=== PATIENT | male | born 1985 | race Caucasian/White ===

== ENCOUNTER 2020-06-21 15:18 | Emergency (ER) | payer OTHER ==
[~2020-06-21] VITALS: Ht 167 cm; Wt 78.0 kg
[~2020-06-21 15:18] MED LIST: NAPR-243 PO
--- NOTE | 2020-06-21 15:28 | ED General ---
General Stated Complaint: LEFT TOES SWOLLEN,RED, HURT WHEN WALKING Source of Information: Patient Exam Limitations: No Limitations History of Present Illness Date Seen by Provider: Jun 21, 2020 Time Seen by Provider: 15:27 Initial Comments Left fourth and fifth toe pain after stubbing it against the wall just prior to arrival. Timing/Duration: 1-2 Days Severity: Moderate Associated Systoms: Denies Symptoms Allergies and Home Medications Allergies Coded Allergies: Codeine (Unverified Allergy, Severe, SEIZURES, 09/29/09) Home Medications Naproxen 500 Mg Tablet, 1 EACH PO BID - TID PRN Prescribed by: MEAGAN AGUIRRE on 09/29/091922 Patient Home Medication List Home Medication List Reviewed: Yes Review of Systems Review of Systems Constitutional: see HPI EENTM: see HPI Respiratory: no symptoms reported Cardiovascular: no symptoms reported Genitourinary: no symptoms reported Musculoskeletal: see HPI Skin: no symptoms reported Psychiatric/Neurological: No Symptoms Reported Hematologic/Lymphatic: No Symptoms Reported Immunological/Allergic: no symptoms reported Physical Exam Vital Signs Vital Signs - First Documented 06/21/20 15:26 Temp 36.2 Pulse 102 Resp 18 B/P (MAP) 140/103 (115) Pulse Ox 98 Capillary Refill : Height, Weight, BMI Height: '" Weight: lbs. oz. kg; BMI Method: General Appearance: No Apparent Distress, WD/WN Neck: Full Range of Motion, Normal Inspection Respiratory: No Accessory Muscle Use, No Respiratory Distress Gastrointestinal: Normal Bowel Sounds, Non Tender Extremity: Normal Capillary Refill, Normal Inspection Neurologic/Psychiatric: Alert, Oriented x3 Skin: Normal Color, Warm/Dry Progress/Results/Core Measures Suspected Sepsis SIRS Temperature: Pulse: Respiratory Rate: Blood Pressure / Mean: Results/Orders My Orders Orders - ZAIRA CONNOLLY APRN Foot, Left, 3 Views (06/21/20 15:23) Vital Signs/I&O 06/21/20 15:26 Temp 36.2 Pulse 102 Resp 18 B/P (MAP) 140/103 (115) Pulse Ox 98 Capillary Refill : Departure Impression Primary Impression: Toe contusion Disposition: HOME, SELF-CARE Condition: Stable Departure-Patient Inst. Decision time for Depature: 15:55 Referrals: NO,LOCAL PHYSICIAN (Family) Primary Care Physician Patient Instructions: Toe Injury (DC) Add. Discharge Instructions: Tape the little toe to the toe next to it for the next few weeks. Ice pack to this area a couple of times a day. Return to ER for any worsening. Scripts Hydrocodone/Acetaminophen (Hydrocodone-Acetamin 5-325 mg) 1 Each Tablet 1 TAB PO Q4H PRN for PAIN-MODERATE (5-7), #10 TAB Prov: ZAIRA CONNOLLY APRN 06/21/20 ZAIRA CONNOLLY APRN Jun 21, 2020 15:28
[2020-06-21] MEDS ORDERED: ACHD5005 PO (15:56)
[2020-06-21 16:05] VITALS: BP 140/80
--- NOTE | 2020-06-21 16:28 | Diagnostic Imaging Report ---
EXAM: FOOT, LEFT, 3 VIEWS INDICATION: Left 4th and 5th toe injury. COMPARISON: None. FINDINGS: No fracture or malalignment. No radiopaque foreign bodies. Soft tissue shadows are unremarkable. IMPRESSION: Negative left foot radiographs. Dictated by: Dictated on workstation # [id number]
== END 2020-06-21 16:05 | disposition home or self-care (01) ==
LOC: EDUNIT# 15:18 → ER 15:20
DX: S90.122A Contusion of left lesser toe(s) without damage to nail, initial encounter (principal); Z88.5 Allergy status to narcotic agent; W22.01XA Walked into wall, initial encounter
CPT/HCPCS: 73630